=== PATIENT | female | born 1950 | race Caucasian/White ===

== ENCOUNTER 2016-08-26 00:41 | Day surgery (SDC) | payer MEDICARE, OTHER ==
[~2016-08-26] VITALS: Ht 162.6 cm; Wt 83.9 kg
[~2016-08-26 00:41] MED LIST: ALBU8.5H2 INHALATION; ATOR20TA PO; ATRV10T PO; LISI1TAB7 PO
[2016-08-26] MEDS ORDERED: Propofol 10,000 mCg/mL 20 mL Inj ONE (00:42)
[2016-08-26] MEDS ORDERED: Lactated Ringer's 1,000 ML IV ONE (06:00)
[2016-08-26] MEDS ORDERED: Lactated Ringer's 1,000 ML IV SCH (07:18)
[2016-08-26 09:29] VITALS: BP 122/72; PULSE 56; RESP 14; O2SAT 100
--- NOTE | 2016-08-26 10:12 | PCM.HPANE ---
Patient Data Surgeon Admitting Provider: Attending Provider:Logan Muse MD Primary Care Physician:Joanne Atkinson Other Provider:Kodi Bashir Anesthesia Reason for Visit Adenomatous Polyp Of Colon Ht/WT & BMI Height (Feet): 5 Height (Inches): 4 Weight (Kilograms): 83.91 Body Mass Index 31.00 Allergies Coded Allergies: No Known Allergies (Verified Allergy, Unknown, 08/24/13) Past Anesthesia History Anesthesia History: Denies:: Abnormal Airway, Anesthesia Reactions, Difficult Intubation, Fam Anesthesia Reaction, Fam Malignant Hypertherm, Malignant Hyperthermia Diabetes History Hx Diabetes?: No MRSA MRSA: No Medications Home Meds Incl Beta Leatha: No Reported Medications Albuterol HFA (Proair HFA)8.5 Gm Hfa.aer.ad2 Puffs INHALATION Q4H #1 INHALER 08/25/16 Lisinopril / HCTZ 10-12.5 mg 1 Each Tablet1 Each PO DAILY Ref 0 08/25/16 Atorvastatin (Lipitor)10 Mg Tab10 Mg PO DAILY Ref 0 08/25/16 Discontinued Reported Medications Atorvastatin (Lipitor)20 Mg [id number] Mg PO DAILY Ref 0 08/25/16 Lisin/HCTZ-Expunged, Do Not Renew! (Lisin/HCTZ 20/25-Expunged, Do Not Renew!)1 Tab Tablet1 Tab PO DAILY 07/23/12 Atorvastatin-Expunged Drug, Do Not Renew! 10 Mg [id number] Mg PO DAILY 07/19/12 Last Time Dose Received Took lisinopril/HCTZ albuterol statin all today History History of ENT Problems?: No HEENT History: Denies:: Abnormal Airway Difficult Intubation Dysphagia Hearing Problem Denture Type: None Teeth Condition: Within Normal Limits Hx of Heart Problems?: Yes Cardiovascular History: Positive for:: Hypertension Irregular Heartbeat (PVC'S) Denies:: AICD Atrial Fibrillation Chest Pain Pacemaker Valvular Heart Disease Other Cardiac History: occ PVC's Other History/Comments No CP or hx KS; Greater than 4 mets Hx of Respiratory Problem?: Yes Respiratory History: Positive for:: Asthma (flares in [facility]) Denies:: COPD Cough Hemoptysis Pneumonia Tuberculosis Use of C-PAP Machine Other History/Comment Breathing is at baseline Hx Neurologic Problems?: No Neurological History: Denies:: CVA Hx of GI Problems?: Yes Hx of Problems?: Yes Genitourinary History: Denies:: HX of Hemodialysis (RENAL INSUFFICIENCY) Female Hx: Denies:: Currently Skin History: Positive for:: History Skin Disorders? (S/P EXC MELANOMA) Denies:: Pressure Ulcers Hx Musculoskeletal Problems?: Yes Musculoskeletal History: Positive for:: Joint Replacement (bilateral knees) Musculoskeletal Trauma (HX OF LT FX RIBS X3 S/P LT KNEE SCOPE,RT FOOT RPR) Denies:: Fibromyalgia Hx of Psycho/Social Problems?: Yes Psycho Social History: Denies:: Anxiety Hx Depression Hx Surgeries?: Yes (partial knee repl. x2, hysterectomy, appy, tonsills) Hx Any Other Health Problems?: Yes Other History: Denies:: Cancer Endocrine Disease Hospitalization Thyroid Disease History Blood Transfusions: Denies:: Blood Transfusions Hx Diabetes: No Hx Alcohol Use: YesHx Substance Use: NoHave You Smoked inLast 12 mo: No Stop/Bang Treated for Sleep Apnea?: No Do You Have a CPAP Machine?: No S-Snoring: Do You Snore Loudly: No T-Tired: feel tired, fatigued: No O-Obsered: Observed not breath: No P-Blood Pressure: treated: Yes B- Body Mass Index > 35 kg/m2: No A- Age over 50: Yes N- Neck Large Circumference: No G- Gender Male: No TEMO Total Score: 2 Risk Assessment Category Category 1A: Patient has history of documented sleep apnea, and HAS NOT received any narcotic, sedative or anesthesia administration during this stay. Category 1B: Patient has history of documented sleep apnea, and HAS received any narcotic , sedative or anesthesia administration during this stay Category 2: Patient has SUSPECTED Obstructive Sleep Apnea, and HAS received any narcotic , sedative or anesthesia administration during this stay. Category 3: Patient has SUSPECTED Obstructive Sleep Apnea and HAS NOT received narcotic, sedative or anesthesia administration during this stay. Category 4: Outpatient in Procedural Areas with known sleep apnea or who screen positive for High Risk via the STOP/BANG questionnaire. Exam Exam Vital Signs Vital Signs Date Time Temp Pulse Resp B/P Pulse Ox O2 Delivery O2 Flow Rate FiO2 08/26/16 09:29 36.2 56 14 122/72 100 Room Air General Appearance: Alert, Oriented X3 HEENT/AIRWAY: MP 2, Neck Movement (FROM) Lungs: Clear to Auscultation, Clear to Percussion Meds/Labs/Diagnostics Admission Meds Current Medications Lactated Ringer's (Lr) 1,000 ml @ 10 mls/hr Q24H ONCE IV Last administered on 08/26/16 09:39; Start 08/26/16 at 06:00; Stop 08/27/16 at 05:59 Plan Impression Patient chart reviewed, patient interviewed and anesthestic plan with risks, benefits, and alternatives discussed, and informed consent obtained. ASA Physical Status: ASA2 Mod Systemic Disease Anesthetic Plan: MAC Bene/Risks/Altern/Consents: Yes HP Complete Prior to Induction: Yes Ron Jordan MD Aug 26, 2016 10:12
[2016-08-26 10:40] VITALS: BP 119/81; PULSE 62; RESP 14; O2SAT 98
--- NOTE | 2016-08-26 10:42 | PCM.ANEP1 ---
Post Anesthesia PACU Phase 1 Assessment Vital Signs Vital Signs Date Time Temp Pulse Resp B/P Pulse Ox O2 Delivery O2 Flow Rate FiO2 08/26/16 10:40 62 14 119/81 98 Room Air 08/26/16 09:29 36.2 56 14 122/72 100 Room Air Anesthetic Administered: MAC Level of Alertness: Awake, talking SHEPHERD's with Equal Strength: Yes Pain: No Nausea or Vomiting: No CV Function & Hydration Stable: Yes Airway Device: Oxygen Delivery: Room Air Lungs: Clear to Auscultation, Clear to Percussion PACU Phase 2 Assessment Complications: No Follow up Care: No Patient Instructions Provided: N/A Comments See anesth record for PACU VS. PACU VSS Ron Jordan MD Aug 26, 2016 10:42
[2016-08-26 10:50] VITALS: BP 110/56; PULSE 56; RESP 16; O2SAT 99
[2016-08-26 10:53] VITALS: BP 132/66; PULSE 54; RESP 16; O2SAT 97
--- NOTE | 2016-08-26 10:54 | ENDO ---
[address] [address] ENDOSCOPY PROCEDURE PATIENT: RUFUS OLIVA : 1950 MR#: [id number] ADMIT: 08/26/2016 JOB ID: [id number] DATE OF SERVICE: 08/26/2016 TYPE OF OPERATION: Colonoscopy and biopsy. PREOPERATIVE DIAGNOSIS(ES): History of tubular adenoma polyps. POSTOPERATIVE DIAGNOSIS(ES): 1. Small internal hemorrhoids. 2. A 2 mm descending colon polyp removed by cold biopsy forceps. ANESTHESIA: Monitored anesthesia care. COMPLICATIONS: None. ESTIMATED BLOOD LOSS: Minimal. DESCRIPTION OF PROCEDURE: After risks and benefits explained to the patient, informed consent was obtained. After anesthesia administered, colonoscope was inserted from the rectum to the cecum. Mucosa carefully examined. Prep of the patient was excellent. After the procedure was done, the scope was withdrawn and the procedure terminated. FINDINGS: Upon inspection of the anus no masses, hemorrhoids, ulcers, or fissures were seen. Throughout the entire examination, there was a 2 mm ascending colon polyp, removed by cold biopsy forceps. There was also a small internal hemorrhoids that was seen on retroflexion. IMPRESSION: 1. Small internal hemorrhoids. 2. A 2 mm ascending colon polyp, removed by cold biopsy forceps. RECOMMENDATION: 1. Await pathology results. 2. Repeat colonoscopy in five years for history of tubular adenoma polyps. 3. Follow up in GI clinic as needed.
--- NOTE | 2016-08-27 16:47 | PATH ---
SURGICAL PATHOLOGY Attending Physician:Logan Muse MD CASE STATUS: Signed Out PATIENT NAME: RUFUS OLIVA PID: [id number] : 1950 DATE COLLECTED:08/26/2016 17:07 SPECIMEN: Colon, Polyp CLINICAL HISTORY: 1. ASCENDING COLON POLYP FINAL DIAGNOSIS: 1.ASCENDING COLON POLYP, BIOPSY: TUBULAR ADENOMA; NEGATIVE FOR HIGH-GRADE DYSPLASIA. ICD10 K63.5 GROSS DESCRIPTION: The specimen is received in one formalin filled container labeled with the patient's name, sublabeled "ascending colon polyp" and consists of a 0.2 x 0.2 x 0.2 CM torsion of tissue which is entirely submitted in one cassette. 08/26/2016 DAC MICRO DESCRIPTION: See diagnosis. ICD-9 CODES: CPT CODES: 1: 86668 Electronically Signed Out Yris Calle MD [facility] Pathology [facility] [address], [place] [address] Technical component performed at [facility], [facility] [address], [place], [address]
== END 2016-08-26 23:59 ==
LOC: END 00:41
PROVIDERS: ATTEND Internal Medicine Gastroenterology
DX: Z12.11 Encounter for screening for malignant neoplasm of colon (principal); D12.2 Benign neoplasm of ascending colon; K64.8 Other hemorrhoids; Z86.010 Personal history of colon polyps; Z80.0 Family history of malignant neoplasm of digestive organs; I10 Essential (primary) hypertension; Z72.89 Other problems related to lifestyle
CPT/HCPCS: 45380; 88305; J7120